=== PATIENT | male | born 1980 | race Caucasian/White ===

== ENCOUNTER 2016-09-27 14:17 | Inpatient (IN) | payer MEDICAID ==
[~2016-09-27] VITALS: Ht 157.5 cm; Wt 72.6 kg
[2016-09-27 14:25] VITALS: BP 155/98; PULSE 105; RESP 16; TEMP 98.6; O2SAT 65; O2SAT 98
--- NOTE | 2016-09-27 14:32 | NUR ---
Patient to ER bed 5 to gown for evaluation. Side rails up. Report given to DEMARIO RALPH.
--- NOTE | 2016-09-27 14:35 | NUR ---
Dr. pelayo at bedside examining the pt.
--- NOTE | 2016-09-27 14:40 | NUR ---
PT. TO ER AAOX4 FROM HOME FOR SWELLING TO LEFT ANKLE, PER PT. HE HAD A SURGERY AUG 2015, PLATE PLACED IN LEFT ANKLE FIBULA FIXTION, I PIN AND [address], STATES PAIN 10/10 UPON TOUCH AND MOVEMENT, NOTICED SWELLING AND REDNESS 1 DAY AGO, PEDAL PULSE PALPABLE WNL, DENIES ANY OTHER COMPLAINTS
[2016-09-27 15:19] LABS: BASOPHILS # (AUTO) 0.1 K/uL (0.0-0.2); BASOPHILS % (AUTO) 1.1 % (0.0-2.0); EOSINOPHILS # (AUTO) 0.3 K/uL (0.0-0.4); EOSINOPHILS % (AUTO) 3.6 % (0.0-4.0); HEMATOCRIT 41.9 % (36-54); HEMOGLOBIN 14.1 g/dL (14.0-18.0); LYMPHOCYTES % (AUTO) 24.8 % (20.5-51.5); MEAN CORPUSCULAR HEMOGLOBIN 29 pg (27-31); MEAN CORPUSCULAR HGB CONC 34 % (32-36); MEAN CORPUSCULAR VOLUME 85 fL (79.0-98.0); MONOCYTES # (AUTO) 0.8 K/uL (0.0-1.0); MONOCYTES % (AUTO) 9.9 % (1.7-9.3); NEUTROPHILS # (AUTO) 4.8 K/uL (1.8-7.7); NEUTROPHILS % (AUTO) 60.6 % (40.0-70.0); PLATELET COUNT (AUTO) 260 K/uL (130-430); RED BLOOD CELL COUNT(AUTO) 4.93 MIL/uL (4.2-6.2); RED CELL DISTRIBUTION WIDTH 13.7 % (9.0-15.0)
[2016-09-27 15:32] LABS: CALCIUM 8.5 mg/dL (8.4-11.0); CREATININE 1.19 mg/dL (0.55-1.30)
[2016-09-27 15:45] LABS: ALBUMIN 3.5 g/dL (3.4-4.8); TOTAL BILIRUBIN 0.2 mg/dL (0.0-1.0); TOTAL PROTEIN, SERUM 7.3 g/dL (6.4-8.3)
--- NOTE | 2016-09-27 16:00 | NUR ---
pt. was given water and juice as per request, md mckeon, at bedside
[2016-09-27] MEDS ORDERED: HYDROcodone/ACETAMIN 5-325 MG TAB (NORCO/ VICODIN) PO ONE (16:30)
--- NOTE | 2016-09-27 17:05 | NUR ---
assumed pt. care, still waiting on bed for pt. to be admitted
--- NOTE | 2016-09-27 17:08 | NUR ---
as per pt. he is not taking any medications
--- NOTE | 2016-09-27 17:20 | NUR ---
Patient will be admitted to care of dr. marsh. Admitted to med surg unit. Will go to room 117 a. Summary report printed. Report given to admitting nurse.
[2016-09-27 17:35] VITALS: BP 130/92; PULSE 77; RESP 16; TEMP 97.5; O2SAT 95
--- NOTE | 2016-09-27 17:35 | NUR ---
Admission Note Received patient from ER with diagnosis of Infected Hardware of Tibia/Fibula. Initial Plan of Care discussed-patient verbalized understanding. Girlfriend at bedside. Oriented to room, call light, pain management and safety.
--- NOTE | 2016-09-27 17:42 | NUR ---
CALLED ORTHO CONSULT TO DR CLIFTON, RE: INFECTED HARDWARE L LEG. SPOKE TO HIRA
--- NOTE | 2016-09-27 18:11 | NUR ---
Initial physical assessment: patient awake, alert and oriented. Ambulatory with cane. Skin intact. L ankle swollen and pain to touch. Call light within reach.
[2016-09-27] MEDS ORDERED: FLU VACC QS 2016-17(36MOS+)/PF 0.5 ML/SYR SYRINGE I.M. PRN (18:15)
--- NOTE | 2016-09-27 18:30 | NUR ---
Flu vac: Flu vaccine given at R deltoid I.M.
[2016-09-27] MEDS ORDERED: OXYCODONE/ACETAMINOPHEN 5-325 TABLET PO PRN (19:00)
[2016-09-27] MEDS ORDERED: ACETAMINOPHEN 325 MG TABLET PO PRN (19:00)
[2016-09-27] MEDS ORDERED: ONDANSETRON HCL 4 MG/2 ML VIAL IVP PRN (19:00)
[2016-09-27] MEDS: CEFAZOLIN 1 GM IVPB PREMIX 50 ML IV SCH ×2 (19:30→22:00)
--- NOTE | 2016-09-27 19:30 | NUR ---
Closing notes: pt on bed resting. stable. girlfriend at bedside. call light within reach. report given at bedside.
--- NOTE | 2016-09-27 19:50 | NUR ---
INITIAL NOTE Patient resting on the bed. No acute distress. Respiration even and unlabored. AO x 4. C/o left ankle pain /. Will give pain med. Skin warm and dry to touch. IV intact to left hand, no redness, no swelling, no drainage, infusing IV antibiotic well. Discussed the safety issue, use call light when need help,and plan of care, verbally understanding. Girl friend at bedside. Safety measure maintained. Call light within reached. Bed in low position, side rails up. Refused to turn on bed alarm. Will continue to monitor.
[2016-09-27 20:00] VITALS: BP 141/90; PULSE 75; RESP 18; TEMP 97.5; O2SAT 98
[2016-09-27] MEDS: OXYCODONE/ACETAMINOPHEN *10*mg/325 mg TABLET PO PRN (20:15)
--- NOTE | 2016-09-27 20:15 | NUR ---
PERCOCET GIVEN Patient c/o left ankle pain 02/21, Percocet 10/325mg PO given as ordered. No acute distress. Safety measure maintained. Call light within reached. Bed in low position, side rails up. Continue to monitor.
--- NOTE | 2016-09-27 22:15 | NUR ---
ROUND Patient resting on the bed with eyes closed. Respiration even and unlabored. Call light within reached. Safety measure maintained. Bed in low position, side rails up. Continue to monitor.
[2016-09-28] MEDS: OXYCODONE/ACETAMINOPHEN *10*mg/325 mg TABLET PO PRN ×3 (00:22→16:13)
--- NOTE | 2016-09-28 00:22 | NUR ---
PERCOCET GIVEN Patient c/o left ankle pain 03/24, Percocet 10/325mg PO given as ordered. No acute distress. Safety measure maintained. Call light within reached. Bed in low position, side rails up. Educated patient to call when need help, patient still refused the bed alarm. Continue to monitor.
[2016-09-28 00:50] VITALS: BP 143/100; PULSE 62; RESP 16; TEMP 97.6; O2SAT 97
--- NOTE | 2016-09-28 02:55 | NUR ---
ROUND Patient sleeping comfortable. Respiration even and unlabored. Call light within reached. Bed in low position, side rails up. Will continue to monitor.
--- NOTE | 2016-09-28 04:21 | NUR ---
ROUND Patient sleeping comfortable. No acute distress. Safety measure maintained. Bed in low position, side rails up. call light within reached. Will continue to monitor.
[2016-09-28] MEDS: CEFAZOLIN 1 GM IVPB PREMIX 50 ML IV SCH ×2 (05:03→13:55)
--- NOTE | 2016-09-28 05:23 | NUR ---
ROUND Patient resting on the bed with eyes closed. No acute distress. Respiration even and unlabored. Safety measure maintained. Bed in low position, side rails up. Call light within reached. Will continue to monitor.
[2016-09-28 06:43] LABS: ALBUMIN 3.5 g/dL (3.4-4.8); CALCIUM 8.5 mg/dL (8.4-11.0); CREATININE 0.83 mg/dL (0.55-1.30); POTASSIUM 3.4 mmol/L (3.5-5.1); TOTAL BILIRUBIN 0.3 mg/dL (0.0-1.0); TOTAL PROTEIN, SERUM 7.3 g/dL (6.4-8.3)
--- NOTE | 2016-09-28 06:56 | NUR ---
CLOSING NOTE Patient resting on the bed. No acute distress. Respiration even and unlabored. Skin warm and dry to touch. SL intact to left hand, no redness, no swelling. All needs met. Hourly rounding during shift. Safety measure maintained. Call light within reached. Bed in low position, side rails up. Refused to turn on bed alarm. Will endorse to morning shift nurse.
[2016-09-28 06:58] LABS: BASOPHILS # (AUTO) 0.1 K/uL (0.0-0.2); BASOPHILS % (AUTO) 0.9 % (0.0-2.0); EOSINOPHILS # (AUTO) 0.4 K/uL (0.0-0.4); HEMATOCRIT 43.7 % (36-54); HEMOGLOBIN 14.4 g/dL (14.0-18.0); LYMPHOCYTES # (AUTO) 2.2 K/uL (1.0-5.5); LYMPHOCYTES % (AUTO) 31.2 % (20.5-51.5); MEAN CORPUSCULAR HEMOGLOBIN 28 pg (27-31); MEAN CORPUSCULAR HGB CONC 33 % (32-36); MEAN CORPUSCULAR VOLUME 86 fL (79.0-98.0); MONOCYTES # (AUTO) 0.7 K/uL (0.0-1.0); NEUTROPHILS # (AUTO) 3.6 K/uL (1.8-7.7); NEUTROPHILS % (AUTO) 51.9 % (40.0-70.0); PLATELET COUNT (AUTO) 253 K/uL (130-430); RED BLOOD CELL COUNT(AUTO) 5.08 MIL/uL (4.2-6.2); RED CELL DISTRIBUTION WIDTH 13.8 % (9.0-15.0)
--- NOTE | 2016-09-28 07:20 | NUR ---
initial notes: pt on bed sleeping. no distress noted. call light within reach. report given at bedside.
[2016-09-28 08:00] VITALS: BP 128/99; PULSE 61; RESP 14; TEMP 97.7; O2SAT 99
[2016-09-28 08:10] LABS: ERYTHROCYTE SEDIMENTATION RATE 10 MM/HR (0-15)
--- NOTE | 2016-09-28 09:59 | NUR ---
rounds: pt sleeping.
[2016-09-28] MEDS ORDERED: POTASSIUM CHLORIDE 20 MEQ TAB.PRT.SR PO ONE (10:00)
--- NOTE | 2016-09-28 11:00 | NUR ---
pain management: pt verbalized in pain 10/10 after walking from the toilet. pain meds P.O. given.
[2016-09-28 12:27] VITALS: BP 139/101; PULSE 72; RESP 17; TEMP 96.2; O2SAT 97
--- NOTE | 2016-09-28 14:05 | NUR ---
Social Service Note: Pt referred to social service technician by case aide to provide pt with [facility] information for follow up appointments. METER REPAIRER HELPER met with pt at bedside; METER REPAIRER HELPER explained the [facility] and provided pt with a list. Pt states that he wants to make his own appointment because he does not know when he will be discharged. METER REPAIRER HELPER also provided pt with prescription discount card to assist with prescriptions if his [employer] does not cover any prescriptions given by physician. METER REPAIRER HELPER will follow up with pt as needs arise.
--- NOTE | 2016-09-28 14:52 | NUR ---
CALLED ID CONSULT TO DR JIMÉNEZ RE; ANNMARIE. SPOKE TO MARCIA
--- NOTE | 2016-09-28 15:49 | NUR ---
rounds: pt on bed resting and on the phone. no distress noted.
[2016-09-28 16:55] VITALS: BP 148/95; RESP 17; TEMP 98.8; O2SAT 97
--- NOTE | 2016-09-28 17:30 | NUR ---
Enrique rounds: seen by Dr. Garay. and talk to pt.
--- NOTE | 2016-09-28 18:00 | NUR ---
Telephone order: Informed Dr. Graves of pt's plan and received discharge order.
--- NOTE | 2016-09-28 19:30 | NUR ---
closing notes: pt sitting on bed. stable. report given to telephone betting clerk. call light within reach.
[2016-09-28 19:57] VITALS: BP 129/78; PULSE 75; RESP 18; TEMP 97.5; O2SAT 98
--- NOTE | 2016-09-28 20:12 | NUR ---
PT D/C D/C PT ORDERED. NO C/O PAIN AND NO DISTRESS NOTED DURING D/C.V/S ARE WNL. INSTRUCTED TO F/U WITH THE [facility] OR [facility]. REMOVED IV AND ALL BELONGINGS WAS WITH PT. PT PREFER TO WAIT OUTSIDE FOR THAN STAY IN HIS ROOM.
== END 2016-09-28 20:15 | disposition home or self-care (01) | DRG 344 ==
LOC: SED 14:17 → SMU 16:37 → STU 16:37 → UNDOADMIN 16:37 → SMU 16:42
PROVIDERS: ADMIT Internal Medicine; ATTEND Internal Medicine
DX: M86.8X7 Other osteomyelitis, ankle and foot (principal); L03.116 Cellulitis of left lower limb; E87.6 Hypokalemia; Z98.890 Other specified postprocedural states
CPT/HCPCS: 36415; 80053; 83605; 85025; 85651-TC; 87040-TC; 99285; J0690; J7050; Q2037

== ENCOUNTER 2016-12-14 07:59 | Outpatient (CLI) | payer OTHER | END 2016-12-14 18:42 | disposition home or self-care (01) | LOC: SMI 07:59 | PROVIDERS: ATTEND Specialist | DX: R79.89 Other specified abnormal findings of blood chemistry (principal); Z90.49 Acquired absence of other specified parts of digestive tract; R10.9 Unspecified abdominal pain | CPT/HCPCS: 74181 ==

== ENCOUNTER 2016-12-18 14:13 | Inpatient (IN) | payer MEDICAID, OTHER ==
[~2016-12-18] VITALS: Ht 157.5 cm; Wt 70.3 kg
[2016-12-18 14:13] VITALS: BP_SYST 130
--- NOTE | 2016-12-18 14:13 | NUR ---
BROUGHT BACK TO BED #4 AND TRIAGED, REPORT GIVEN TO MEGAN
--- NOTE | 2016-12-18 14:30 | NUR ---
Pt had lap ibethildefonso last Saturday at [place], was waiting on results from a HIDA scan and did not, so left AMA. Pt went to the doctors and he told the pt to come to hospital because he had a blockage. Pt denies any pain, has yellow discoloration to skin and eyes. No other injuries/complaints per pt or noted.
--- NOTE | 2016-12-18 15:07 | NUR ---
ER at bedside examining patient.
[2016-12-18] MEDS ORDERED: NACL 0.9% 1,000 ML IV ONE (15:12)
--- NOTE | 2016-12-18 15:33 | NUR ---
Medication reconciliation completed with information provided by Pt. No home medications
[2016-12-18 15:45] LABS: BASOPHILS % (AUTO) 0.5 % (0.0-2.0); EOSINOPHILS # (AUTO) 0.1 K/uL (0.0-0.4); EOSINOPHILS % (AUTO) 1.8 % (0.0-4.0); HEMATOCRIT 34.8 % (36-54); HEMOGLOBIN 11.8 g/dL (14.0-18.0); LYMPHOCYTES % (AUTO) 13.1 % (20.5-51.5); MEAN CORPUSCULAR HEMOGLOBIN 30 pg (27-31); MEAN CORPUSCULAR HGB CONC 34 % (32-36); MEAN CORPUSCULAR VOLUME 87 fL (79.0-98.0); MONOCYTES # (AUTO) 0.7 K/uL (0.0-1.0); MONOCYTES % (AUTO) 9.3 % (1.7-9.3); NEUTROPHILS # (AUTO) 5.7 K/uL (1.8-7.7); NEUTROPHILS % (AUTO) 75.3 % (40.0-70.0); PLATELET COUNT (AUTO) 331 K/uL (130-430); RED BLOOD CELL COUNT(AUTO) 3.98 MIL/uL (4.2-6.2); RED CELL DISTRIBUTION WIDTH 14.4 % (9.0-15.0); WHITE BLOOD COUNT (AUTO) 7.5 K/uL (4.8-10.8)
--- NOTE | 2016-12-18 15:48 | NUR ---
Patient will be admitted to care of Dr Adams. Admitted to Med Surg unit. Will go to room 135. Belongings list completed. Summary report printed. Report will be given at bedside.
--- NOTE | 2016-12-18 15:56 | NUR ---
ADMISSION NOTE Received patient from ER via gurney. Patient admitted with diagnosis of . Patient is awake, alert, oriented X 4. Patient oriented to hospital room, call light, toileting, pain management and safety-teach back done. Patient informed that Farideh will be primary nurse and that their room number is 124A. Personal belongings checked and Belongings List documented. Call light within reach.
[2016-12-18 15:57] VITALS: BP_SYST 111
[2016-12-18 16:07] LABS: PROTHROMBIN TIME 11.2 SECS (9.5-12.5)
[2016-12-18 16:10] LABS: CALCIUM 8.9 mg/dL (8.4-11.0); CREATININE 0.99 mg/dL (0.55-1.30); POTASSIUM 3.2 mmol/L (3.5-5.1)
--- NOTE | 2016-12-18 16:10 | NUR ---
Initial Note Received pt in bed, no s/s of distress or sob noted, pt has no c/o pain at this time, pt in stable condition, pt aaox4, verbal. Iv catheter patent, no signs of infection or infiltration noted. Pt has 4 abd incisions with dressing clean and dry, abd tender. Bed at lowest position, call light within reach, will continue to monitor pt for any changes, fall precautions in place.
[2016-12-18 16:14] LABS: BILIRUBIN,URINE 3+ (NEGATIVE); CLARITY/URINE SL HAZY (CLEAR); COLOR,URINE BROWN (YELLOW); GLUCOSE,URINE NEGATIVE (NEGATIVE); KETONES,URINE TRACE (NEGATIVE); LEUKOCYTE ESTERASE ,URINE TRACE (NEGATIVE); NITRITE, URINE POSITIVE (NEGATIVE); PH,URINE 6.5 (5.0-8.0); PROTEIN URINE 1+ (NEGATIVE)
[2016-12-18 16:15] LABS: ALBUMIN 2.7 g/dL (3.4-4.8); TOTAL BILIRUBIN 4.8 mg/dL (0.0-1.0); TOTAL PROTEIN, SERUM 6.7 g/dL (6.4-8.3)
[2016-12-18 16:17] LABS: BLOOD, URINE TRACE (NEGATIVE)
[2016-12-18 16:33] LABS: BACTERIA,URINE MODERATE /HPF (None Seen)
[2016-12-18 16:34] LABS: COARSE GRANULAR CASTS,URINE 0-2 /LPF (None Seen); FINE GRANULAR CASTS,URINE 0-1 /LPF (None Seen); MUCUS,URINE 3+ /LPF (None Seen)
[2016-12-18 16:59] VITALS: BP_SYST 111
[2016-12-18] MEDS: D5NS 1,000 ML IV SCH (17:03)
--- NOTE | 2016-12-18 18:12 | NUR ---
Closing Note Pt in bed, no s/s of distress or sob noted, pt has no c/o pain at this time, pt in stable condition, pt aaox4, verbal. Iv catheter patent, no signs of infection or infiltration noted. Bed at lowest position, call light within reach, will endorse care of pt to incoming nurse, fall precautions in place.
[2016-12-18 18:14] LABS: BARBITURATE, URINE NEGATIVE (NEG <=200); BENZODIAZEPINE, URINE NEGATIVE (NEG <=150); CANNABINOID, URINE POSITIVE (NEG <=50); COCAINE, URINE NEGATIVE (NEG <=150); METHAMPHETAMINES SCREEN,URINE NEGATIVE (NEG <=500); OPIATE, URINE NEGATIVE (NEG <=100); PHENCYCLIDINE SCREEN,URINE NEGATIVE (NEG <=25); UR TRICYCLIC ANTIDEPRESSANTS NEGATIVE (NEG <=300); URINE AMPHETAMINE NEGATIVE (NEG <=500); URINE METHADONE NEGATIVE (NEG <=200); URINE OXYCODONE SCREEN NEGATIVE (NEG <=100); URINE PROPOXYPHENE SCREEN NEGATIVE (NEG <=300)
--- NOTE | 2016-12-18 19:50 | NUR ---
Initial Notes Patient alert and oriented, able to make needs known. Patient denies pain at this time. No SOB noted, on room air. Denies nausea/vomiting at this time. IV site patent, flushes well, infusing fluids as ordered. Skin intact. Patient scheduled for ERCP and HIDA tomorrow, pt aware. Goal of pain management, GI stability and safety this shift. Call light within reach. Will continue to monitor.
[2016-12-18 20:00] VITALS: BP_SYST 137
[2016-12-18] MEDS: HYDROmorphone 1 MG INJ. 1 MG/ML AMPUL IVP PRN (21:46)
--- NOTE | 2016-12-18 22:05 | NUR ---
Notes Patient recently medicated with pain medicine. No SOB noted. IV site patent, flushes well, infusing fluids as ordered. Call light within reach. Will continue to monitor.
--- NOTE | 2016-12-19 00:10 | NUR ---
Notes Patient sleeping at this time. No s/s of pain noted. Afebrile. IV site patent, flushes well. Patient repositions self in bed. Call light within reach. Will continue to monitor.
[2016-12-19 00:25] VITALS: BP_SYST 132
--- NOTE | 2016-12-19 02:00 | NUR ---
Notes Patient sleeping at this time. Afebrile. No SOB noted. IV site patent, flushes well, infusing fluids as ordered. Call light within reach. Will continue to monitor.
[2016-12-19] MEDS: D5NS 1,000 ML IV SCH ×2 (02:37→15:35)
[2016-12-19 04:00] VITALS: BP_SYST 128
[2016-12-19 06:29] LABS: BASOPHILS # (AUTO) 0.1 K/uL (0.0-0.2); EOSINOPHILS # (AUTO) 0.3 K/uL (0.0-0.4); LYMPHOCYTES # (AUTO) 1.2 K/uL (1.0-5.5); MONOCYTES # (AUTO) 0.7 K/uL (0.0-1.0)
--- NOTE | 2016-12-19 06:39 | NUR ---
Closing Notes Patient denies pain at this time. No SOB noted, on room air. Denies nausea/vomiting at this time. IV site patent, flushes well, infusing fluids as ordered. Goal of pain management, GI stability and safety met. Call light within reach. Will continue to monitor.
[2016-12-19 06:41] LABS: BASOPHILS % (AUTO) 1.4 % (0.0-2.0); EOSINOPHILS % (AUTO) 3.9 % (0.0-4.0); HEMATOCRIT 34.7 % (36-54); HEMOGLOBIN 11.6 g/dL (14.0-18.0); LYMPHOCYTES % (AUTO) 16.4 % (20.5-51.5); MEAN CORPUSCULAR HEMOGLOBIN 30 pg (27-31); MEAN CORPUSCULAR HGB CONC 34 % (32-36); MEAN CORPUSCULAR VOLUME 88 fL (79.0-98.0); MONOCYTES % (AUTO) 9.7 % (1.7-9.3); NEUTROPHILS # (AUTO) 5.2 K/uL (1.8-7.7); NEUTROPHILS % (AUTO) 68.6 % (40.0-70.0); PLATELET COUNT (AUTO) 308 K/uL (130-430); RED BLOOD CELL COUNT(AUTO) 3.96 MIL/uL (4.2-6.2); RED CELL DISTRIBUTION WIDTH 14.6 % (9.0-15.0); WHITE BLOOD COUNT (AUTO) 7.5 K/uL (4.8-10.8)
[2016-12-19 06:50] LABS: ALBUMIN 2.5 g/dL (3.4-4.8); CALCIUM 8.6 mg/dL (8.4-11.0); CREATININE 0.88 mg/dL (0.55-1.30); TOTAL BILIRUBIN 4.9 mg/dL (0.0-1.0); TOTAL PROTEIN, SERUM 6.4 g/dL (6.4-8.3)
[2016-12-19 06:54] LABS: PROTHROMBIN TIME 11.1 SECS (9.5-12.5)
[2016-12-19 07:06] LABS: POTASSIUM 2.8 mmol/L (3.5-5.1)
[2016-12-19 08:00] VITALS: BP_SYST 133
--- NOTE | 2016-12-19 08:00 | NUR ---
A/Ox4, sleepy but easily arousable. IV on left wrist, #20, infused with D5NS 100ml/hr, intact. Patient ambulatory. Call light in place, bed at lowest position, will continue to monitor.
--- NOTE | 2016-12-19 08:25 | NUR ---
patient to HIDA scan. Tolerated transport well.
[2016-12-19] MEDS: POTASSIUM CHLORIDE 40 MEQ in NS 250 ML IV SCH ×2 (09:53→15:34)
--- NOTE | 2016-12-19 10:23 | NUR ---
Patient returned room after HIDA scan. No signs of distress noted.
--- NOTE | 2016-12-19 11:00 | NUR ---
Patient to [facility] by wheelchair. No signs of distress noted during transport.
[2016-12-19 12:10] VITALS: BP_SYST 132
--- NOTE | 2016-12-19 12:10 | NUR ---
Patient returned to room. No signs of distress noted.
--- NOTE | 2016-12-19 12:40 | NUR ---
Discharge Planning Received order from Dr Adams to transfer patient to [facility] for ERCP and possible stent placement. Contacted and left message for CARLOS Perry, , @ [facility] requesting assistance with transfer to contracted facility. Addendum: 12/19/16 at 1342 by Kandy Guzman RN Received call back from Vicky requesting MD to MD with [facility] Dr Keen. Contacted Dr Adams and gave him Dr Keen' cell #. Waiting for call back from Vicky with transfer info. Addendum: 12/19/16 at 1525 by Kandy Guzman RN Received call from CARLOS @ [facility] Ambulance auth# [id number]. [facility] [phone] for ambulance transport.
[2016-12-19] MEDS: HYDROmorphone 1 MG INJ. 1 MG/ML AMPUL IVP PRN ×2 (14:11→18:52)
--- NOTE | 2016-12-19 14:15 | NUR ---
Patient c/o abdominal pain, 01/21. Dilaudid 1mg is given IVP. No signs of distress noted.
[2016-12-19] MEDS: ONDANSETRON HCL 4 MG/2 ML VIAL IVP PRN ×2 (14:16→18:54)
--- NOTE | 2016-12-19 16:15 | NUR ---
Patient is resting, no signs of distress noted.
[2016-12-19 16:49] VITALS: BP_SYST 127
--- NOTE | 2016-12-19 18:24 | NUR ---
Donald, mattress spring encaser, gave transfer instructions for the patient. Will be carried out.
--- NOTE | 2016-12-19 18:30 | NUR ---
Patient is resting, c/o moderate pain on the abdomen , 6/10. Will reassess further to monitor increase of pain.
--- NOTE | 2016-12-19 18:50 | NUR ---
Contracted ambulance is called to activate will call pick-up, but [facility] states that there is no will call order in place. recreation facilities supervisor is arranged, and states that ride will picker/puller at 1-3 hours later.
--- NOTE | 2016-12-19 19:40 | NUR ---
Report is given to [facility] ([facility]O Am[facility])
[2016-12-19 19:44] VITALS: BP_SYST 129
--- NOTE | 2016-12-19 20:15 | NUR ---
PT TRANSFERRED TO [facility] [place]- nurse report given to Perry Zuniga at [facility] [place]. Transfer packet with Transfer Orders and Medication Reconciliation form given to [facility] service. Exitcare provided. [facility] ID band removed, replaced with ID band with pt's name and . Transferred with IV catheter of left wrist patent,drsg cdi. All belongings sent with patient. Vital signs 99.0,20,129/90,71,a4azs=72% Patient left floor via gurney escorted by Sharon to a [facility] service in no distress.
[2016-12-20 10:24] LABS: HEPATITIS A AB, IgM Negative (Negative); HEPATITIS B CORE AB, IgM Negative (Negative); HEPATITIS B SURFACE AG Negative (Negative)
== END 2016-12-19 20:15 | disposition short-term general hospital (02) | DRG 861 ==
LOC: SED 14:15 → SMU 15:16
PROVIDERS: ADMIT Specialist; ATTEND Specialist
DX: G89.18 Other acute postprocedural pain (principal); K80.51 Calculus of bile duct without cholangitis or cholecystitis with obstruction; K76.9 Liver disease, unspecified; Z90.49 Acquired absence of other specified parts of digestive tract; R79.89 Other specified abnormal findings of blood chemistry
CPT/HCPCS: 36415; 74181; 78226; 80053; 80074; 80307; 81000-TC; 82150-TC; 83690-TC; 85025; 85610-TC; 85730-TC; 87081; 87086; 96360; 99285; A9537; J1170; J2405; J3480; J7030; J7042; J7050